=== PATIENT | female | born 1985 | race Caucasian/White ===

== ENCOUNTER 2021-02-19 15:28 | Emergency (ER) | payer OTHER, SELFPAY ==
--- NOTE | ~2021-02-19 | MR_ITS ---
EXAMINATION: MR BRAIN WITHOUT CONTRAST CLINICAL INFORMATION: Left-sided weakness. Stroke. COMPARISON: CT head from 02/19/2021. TECHNIQUE: MRI of the brain was obtained using routine sequences without contrast. FINDINGS: No focal restricted diffusion is demonstrated to suggest acute or subacute cerebral ischemia. No evidence of acute or chronic hemorrhagic products on heme-sensitive imaging. Normal parenchymal signal characteristics. The ventricles are normal in morphology and size. No abnormal mass effect. No midline shift. Normal appearance of the pituitary gland. The cerebellar tonsils are mildly low lying, positioned 0.4 cm below the foramen magnum. The CSF space of the foramen magnum is maintained. Normal arterial and venous vascular flow voids are present. Normal, homogeneous marrow signal. Near complete opacification of an atelectatic left maxillary sinus. Moderate mucosal thickening of the remaining paranasal sinuses. No signal abnormalities within the mastoids. MR/MR head/brain wo con IMPRESSION: 1. No acute intracranial abnormalities. 2. Mild cerebellar tonsillar ectopia. 3. Near complete opacification of an atelectatic left maxillary sinus. Moderate mucosal thickening of the remaining paranasal sinuses.
--- NOTE | ~2021-02-19 | XR_ITS ---
EXAMINATION: XR CHEST CLINICAL INFORMATION: Left-sided weakness. COMPARISON: Chest radiograph dated from 02/16/2018. TECHNIQUE: AP view of the chest was obtained. FINDINGS: No significant abnormality is noted involving the heart, lungs, mediastinum, bony thorax or soft tissues. XR/XR chest 1V IMPRESSION: Unremarkable examination.
--- NOTE | ~2021-02-19 | CT_ITS ---
EXAMINATION: CT HEAD WITHOUT CONTRAST CLINICAL INFORMATION: Left-sided weakness. COMPARISON: None. TECHNIQUE: Contiguous axial imaging was performed from the skull base to vertex without intravenous administration of contrast. Coronal and sagittal reformatted images are performed at the CT scanner. [This CT examination was performed using dose optimization techniques as appropriate, variously including the following: *Automated exposure control *Adjustment of mA and/or kV according to patient size (this includes techniques or standardized protocols for targeted exams where dose is matched to indication/reason for exam; i.e. extremities or head) *Use of iterative reconstruction technique] DLP: 700 mGy-cm. FINDINGS: There is no evidence of acute intracranial hemorrhage or territorial infarction. No abnormal mass-effect or midline shift is seen. [place] to white matter differentiation is well preserved. No extra-axial fluid collections are identified. The ventricles are normal in size. There is no abnormal attenuation within the brain parenchyma. There is no osseous abnormality. There is complete opacification of left maxillary sinus. Large retention cyst at the inferior right maxillary sinus. Mastoid air cells and middle ear cavities are normally aerated. CT/CT head/brain wo con IMPRESSION: No acute intracranial pathology.
[2021-02-19 15:49] VITALS: BP 141/95; PULSE 85; RESP 16; TEMP 37; O2SAT 99; BMI 25.5
[2021-02-19 15:49] LABS: Glucose, Whole Blood 74 mg/dL (60-115)
--- NOTE | 2021-02-19 16:01 | ECG_ITS ---
Test Reason : DIZZYNESS Blood Pressure : / mmHG Vent. Rate : 069 BPM Atrial Rate : 069 BPM P-R Int : 106 ms QRS Dur : 078 ms QT Int : 408 ms P-R-T Axes : 060 050 038 degrees QTc Int : 437 ms Sinus rhythm with sinus arrhythmia with short GA Otherwise normal ECG When compared with ECG of 16-FEB-2018 16:12, No significant change was found Referred By: Katherine Perez Electronically Signed By:ARIE BRADY
--- NOTE | 2021-02-19 16:05 | ED.GENADULT ---
HPI - General Adult General Chief complaint: Headache Stated complaint: dizzy trouble walking left side numb sudden onset Time Seen by Provider: 02/19/21 15:45 Source: patient and family (Spouse) Mode of arrival: ambulatory Limitations: no limitations History of Present Illness HPI narrative: 35-year-old female came in with feeling dizzy with a left-sided numbness and weakness started at 3 p.m.. Patient walked into the emergency department with her for evaluation. Patient was doing her daily activity at home today when she started to have dizziness, feeling nauseous, followed by feeling weak on the left side and decreased sensation to light touch on the left side. 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 Patient declined any headache, or nausea. Related Data Allergies Allergy/AdvReac Type Severity Reaction Status Date / Time No Known Allergies Allergy Verified 02/19/21 15:33 Review of Systems Review of Systems: All other systems are reviewed and are negative Constitutional: Reports as per HPI and Reports no additional constitutional complaints Eyes: Reports as per HPI and Reports no additional eye complaints Reports system reviewed and no additional complaints, except as documented Cardiovascular: Reports as per HPI and Reports no additional cardiovascular complaints Respiratory: Reports as per HPI and Reports no additional respiratory complaints Gastrointestinal: Reports as per HPI and Reports no additional gastrointestinal complaints Genitourinary: Reports no additional female genitourinary complaints Musculoskeletal: Reports no additional musculoskeletal complaints Skin/Breast: Reports system reviewed and no additional complaints, except as docu Psychiatric: Reports no additional psychiatric complaints Endocrine: Reports no additional endocrine complaints Hematologic/Lymphatic: Reports no additional hematologic/lymphatic complaints Allergic/Immunologic: Reports no additional allergic/immunologic complaints Reports system reviewed and no additional complaints, except as documented and Reports Abnormal speech present [facility] Past Medical History Source: old records reviewed Medical History (Updated 02/19/21 @ 19:54 by Katherine Perez MD) Bulging of cervical intervertebral disc Social History Social History Patient Tobacco Use Status: Never used Tobacco Use of substances other than those prescribed or required for medical reasons: No Advance Directives: No Advance Directives Information Provided: No Physical Exam Vital Signs: Vital Signs: Last Vital Signs Temp 98.5 F 02/19/21 19:25 Pulse 88 02/19/21 19:25 Resp 18 02/19/21 19:25 BP 127/95 H 02/19/21 19:25 Pulse Ox 99 02/19/21 19:25 Body Mass Index 25.5 Vital signs have been reviewed as appeared to be correct. Blood pressure normal. Heart rate normal. Respiration rate normal. Temperature normal. Oxygen saturation normal. Appearance: Alert. Oriented X3. No acute distress, anxious Head: Normal external exam. Normocephalic. Atraumatic. No Dee signs noted. No raccoon eyes noted Eyes: PERRLA. EOMI. Conjunctiva and sclera normal. Eyelids normal. ENT: TM's Normal. Pharynx normal. Uvula midline. Moist mucous membranes. No trismus noted. No drooling noted. No muffled voice noted. Neck: Normal inspection. Neck supple. FROM. No adenopathy. Thyroid Normal. No meningeal signs. No neck mass noted. CVS: Normal heart rate and rhythm. Heart sound normal. No murmurs noted. Pulses normal throughout. Respiratory: No respiratory distress. Painless inspiration. Breath sounds normal. No wheezes/rales/rhonchi noted. Chest nontender. No accessory muscle usage noted or decreased air movement noted. Abdomen: Soft and nontender. Bowel sounds normal in all 4 quadrants. No distention noted. No organomegaly noted. No visible injury noted. Back: No CVA tenderness. Full range of motion noted. Skin: Skin warm and dry. Normal skin color. Normal skin turgor. No rashes/lesions/lacerations noted. Extremities: No lower extremity edema. Extremities exhibit normal range of motion. Extremities nontender. Neuro: Oriented X 3. Cranial nerve exam: II-XII are grossly intact No motor deficit Reflexes normal, decreased sensation to light touch in the left upper extremities, left lower extremities, left face chin. NIH Stroke Scale Level of Consciousness: Alert Level of Consciousness Questions: Answers both questions correctly Level of Consciousness Commands: Performs both tasks correctly Best Gaze: Normal Visual: No visual loss Facial Palsy: Normal Motor Arm (Right): No drift Motor Arm (Left): No drift Motor Leg (Right): No drift Motor Leg (Left): No drift Limb Ataxia: Absent Sensory: Mild to moderate sensory loss Best Language: No aphasia Dysarthia: Normal Extinction and Inattention: No abnormality Score: 1 Course Course Course Narrative: Assessment and plan. 35-year-old female came in for evaluation of left side weakness and numbness started today at home, patient had a normal neuro exam, with an NIH score of 1, patient had CT of the head/MRI of the head which showed no acute stroke. No family history of stroke especially at young age. Patient now feels better after was given Ativan in the ED and able to ambulate in the emergency department Medical Decision Making Lab Data Lab results reviewed: Yes I reviewed the patient's lab results. Result diagrams: 02/19/21 16:24 02/19/21 16:24 Labs: Lab Results 02/19/21 02/19/21 02/19/21 Range/Units 15:45 16:24 16:24 WBC 7.8 (4.8-10.8) X10*3/uL RBC 4.70 (4.20-5.50) X10*6/uL Hgb 13.7 (12.0-16.0) g/dl Hct 41.8 (37-47) % MCV 88.9 (80-98) fL MCH 29.1 (27.0-33.0) pg MCHC 32.8 (31.0-35.0) g/dl RDW 12.8 (11.0-16.0) % Plt Count 266 (160-400) X10*3/uL MPV 11.8 (9.4-12.3) fL Immature Gran % (Auto) 0.3 (0.0-0.4) % Neut % (Auto) 53.0 (45-73) % Lymph % (Auto) 38.0 (20-40) % [place] % (Auto) 5.7 (2-11) % Eos % (Auto) 2.4 (0-4) % Baso % (Auto) 0.6 (0-2) % Lymph # (Auto) 3.0 (1.2-4.9) X10*3/uL [place] # (Auto) 0.5 (0.1-1.2) X10*3/uL Eos # (Auto) 0.2 (0.0-0.4) X10*3/uL Baso # (Auto) 0.1 (0.0-0.2) X10*3/uL Abs Immat Gran (auto) 0.02 (0.00-0.03) X10*3/uL Absolute Neuts (auto) 4.2 (2.0-8.3) X10*3/uL Absolute Nucleated RBC 0.000 (0.0-0.012) X10*3/uL Nucleated RBC % (auto) 0.0 (0.0-0.2) /100WBC Sodium 140 (135-145) mmol/L Potassium 4.0 (3.3-5.1) mmol/L Chloride 106 (96-108) mmol/L Carbon Dioxide 22 (22-29) mmol/L Anion Gap 16 (12-20) BUN 12 (9-16) mg/dL Creatinine 0.77 (0.5-1.4) mg/dL Estim Creat Clear Calc 98.9 Estimated GFR > 60 POC Glucose 74 (60-115) mg/dL Random Glucose 92 (60-115) mg/dL Calcium 9.6 (8.4-10.2) mg/dL Total Bilirubin 0.6 (0.0-1.0) mg/dL Direct Bilirubin 0.2 (0.0-0.5) mg/dL AST 18 (5-31) U/L ALT 18 (0-31) U/L Alkaline Phosphatase 65 (39-117) U/L Troponin I High Sens (<3.5-17.0) ng/L Total Protein 7.9 (6.5-8.0) g/dL Albumin 4.7 (3.5-5.0) g/dL Lipase 20 (8-78) U/L Urine Color Urine Appearance Urine pH (5.0-8.0) Ur Specific [place] (1.005-1.025) Urine Protein (NEG-TRACE) MG/DL Urine Glucose (UA) (NEG) MG/DL Urine Ketones (NEG) MG/DL Urine Blood (NEG) Urine Nitrite (NEG) Ur Leukocyte Esterase (NEG) COVID-19 (DENIS) (Negative) COVID-19 Clin Com 02/19/21 02/19/21 02/19/21 Range/Units 16:24 16:24 16:25 WBC (4.8-10.8) X10*3/uL RBC (4.20-5.50) X10*6/uL Hgb (12.0-16.0) g/dl Hct (37-47) % MCV (80-98) fL MCH (27.0-33.0) pg MCHC (31.0-35.0) g/dl RDW (11.0-16.0) % Plt Count (160-400) X10*3/uL MPV (9.4-12.3) fL Immature Gran % (Auto) (0.0-0.4) % Neut % (Auto) (45-73) % Lymph % (Auto) (20-40) % [place] % (Auto) (2-11) % Eos % (Auto) (0-4) % Baso % (Auto) (0-2) % Lymph # (Auto) (1.2-4.9) X10*3/uL [place] # (Auto) (0.1-1.2) X10*3/uL Eos # (Auto) (0.0-0.4) X10*3/uL Baso # (Auto) (0.0-0.2) X10*3/uL Abs Immat Gran (auto) (0.00-0.03) X10*3/uL Absolute Neuts (auto) (2.0-8.3) X10*3/uL Absolute Nucleated RBC (0.0-0.012) X10*3/uL Nucleated RBC % (auto) (0.0-0.2) /100WBC Sodium (135-145) mmol/L Potassium (3.3-5.1) mmol/L Chloride (96-108) mmol/L Carbon Dioxide (22-29) mmol/L Anion Gap (12-20) BUN (9-16) mg/dL Creatinine (0.5-1.4) mg/dL Estim Creat Clear Calc Estimated GFR POC Glucose (60-115) mg/dL Random Glucose (60-115) mg/dL Calcium (8.4-10.2) mg/dL Total Bilirubin (0.0-1.0) mg/dL Direct Bilirubin (0.0-0.5) mg/dL AST (5-31) U/L ALT (0-31) U/L Alkaline Phosphatase (39-117) U/L Troponin I High Sens < 3.5 (<3.5-17.0) ng/L Total Protein (6.5-8.0) g/dL Albumin (3.5-5.0) g/dL Lipase (8-78) U/L Urine Color YELLOW Urine Appearance CLEAR Urine pH 6.0 (5.0-8.0) Ur Specific [place] 1.020 (1.005-1.025) Urine Protein NEG (NEG-TRACE) MG/DL Urine Glucose (UA) NEG (NEG) MG/DL Urine Ketones 5 (NEG) MG/DL Urine Blood NEG (NEG) Urine Nitrite NEG (NEG) Ur Leukocyte Esterase NEG (NEG) COVID-19 (DENIS) Negative (Negative) COVID-19 Clin Com See Note Imaging Data Chest x-ray: Radiologist's impression: Unremarkable examination. CT scan - head: Radiologist's impression: No acute intracranial pathology. MRI of the brain: Radiologist's impression: 1. No acute intracranial abnormalities. 2. Mild cerebellar tonsillar ectopia. 3. Near complete opacification of an atelectatic left maxillary sinus. Moderate mucosal thickening of the remaining paranasal sinuses. ECG Data Interpretation: Normal sinus rhythm at 69 beats per minute, short UT intervals otherwise unremarkable intervals, ST-T changes. Discharge Plan Discharge Clinical Impression: Paresthesia Patient Disposition: Home, Self-Care Instructions: Paresthesia (ED) Referrals: Physician,Jenifer J [Primary Care Provider] - 2 days
[2021-02-19 16:31] LABS: MANUAL DIFF FLAG NO
[2021-02-19 16:34] LABS: Appearance Urine CLEAR; Color Urine YELLOW; Glucose Urine UA NEG (NEG); Leukocyte Esterase Urine NEG (NEG); Nitrite Urine NEG (NEG); Urine Blood NEG (NEG); Urine Ketones 5 MG/DL (NEG); Urine Protein NEG (NEG-TRACE)
[2021-02-19 16:35] LABS: Basophils Absolute Auto 0.1 X10*3/uL (0.0-0.2); Basophils Percent Auto 0.6 % (0-2); Eosinophils Absolute Auto 0.2 X10*3/uL (0.0-0.4); Eosinophils Percent Auto 2.4 % (0-4); Hematocrit 41.8 % (37-47); Hemoglobin 13.7 g/dl (12.0-16.0); Imm Gran Abs Auto 0.02 X10*3/uL (0.00-0.03); Imm Gran Pct Auto 0.3 % (0.0-0.4); Mean Corpuscular HGB Conc 32.8 g/dl (31.0-35.0); Mean Corpuscular Hemoglobin 29.1 pg (27.0-33.0); Mean Corpuscular Volume 88.9 fL (80-98); Mean Platelet Volume 11.8 fL (9.4-12.3); Monocytes Absolute Auto 0.5 X10*3/uL (0.1-1.2); Monocytes Percent Auto 5.7 % (2-11); Neutrophils Absolute Auto 4.2 X10*3/uL (2.0-8.3); Platelet Count 266 X10*3/uL (160-400); Red Cell Distribution Width 12.8 % (11.0-16.0); White Blood Count 7.8 X10*3/uL (4.8-10.8)
[2021-02-19] MEDS: 0.9 % Sodium Chloride 1,000 ML 999 ML IVCONT (16:39)
[2021-02-19] MEDS: LORazepam 1 MG TABLET PO (16:41)
[2021-02-19 16:42] VITALS: BP 138/81; PULSE 93; RESP 16; O2SAT 98
[2021-02-19 16:54] LABS: IDNOW Serial# 08D9AD1C
[2021-02-19 16:55] LABS: Troponin-I High Sensitivity < 3.5 ng/L (<3.5-17.0)
[2021-02-19 16:55] LABS: COVID-19 Test Negative (Negative)
--- NOTE | 2021-02-19 17:00 | PC.NURSE ---
Off unit to MRI
[2021-02-19 17:01] LABS: Alanine Aminotransferase 18 U/L (0-31); Albumin Level 4.7 g/dL (3.5-5.0); Alkaline Phosphatase 65 U/L (39-117); Anion Gap 16 (12-20); Aspartate Amino Transferase 18 U/L (5-31); Bilirubin Direct 0.2 mg/dL (0.0-0.5); Bilirubin Total 0.6 mg/dL (0.0-1.0); Blood Urea Nitrogen 12 mg/dL (9-16); Calcium 9.6 mg/dL (8.4-10.2); Carbon Dioxide 22 mmol/L (22-29); Chloride 106 mmol/L (96-108); Creatinine Clr Calc Pharmacy 98.9; Estimated Glomerular Filt Rate > 60; Glucose Random 92 mg/dL (60-115); Lipase 20 U/L (8-78); Sodium 140 mmol/L (135-145); Total Protein 7.9 g/dL (6.5-8.0)
[2021-02-19 19:25] VITALS: BP 127/95; PULSE 88; RESP 18; TEMP 36.9; O2SAT 99
--- NOTE | 2021-02-19 19:51 | PC.NURSE ---
Pt alert and oriented x4, clam and cooperative. Pt denies pain. Pt states she is ready for dc. Pt and spouse educated on dc. IV removed, vitas stable. Pt ambulated out to private car.
== END 2021-02-19 19:58 | disposition home or self-care (01) ==
PROVIDERS: Emergency Provider Emergency Medicine
DX: R20.2 Paresthesia of skin (principal); R51.9 Headache, unspecified; R42 Dizziness and giddiness; R29.701 NIHSS score 1; Z20.822 Contact with and (suspected) exposure to COVID-19; Z79.899 Other long term (current) drug therapy
CPT/HCPCS: 36415; 70450; 70551; 71045; 80048; 80076; 81003; 82947; 83690; 84484; 85025; 87635; 93005; 96360; 99285

== ENCOUNTER 2021-07-03 16:30 | Emergency (ER) | payer OTHER, SELFPAY ==
--- NOTE | ~2021-07-03 | US_ITS ---
EXAMINATION: US PELVIS CLINICAL INFORMATION: Pelvic pain with history of ovarian cyst COMPARISON: None TECHNIQUE: Ultrasound of the pelvis is performed using both transabdominal and transvaginal transducers along with Doppler. Transvaginal imaging is performed due to inadequate visualization transabdominally. FINDINGS: Uterus: The uterus is anteverted and anteflexed measuring 10.0 x 3.8 x 6.4 cm. A mid body fibroid is seen measuring 3.3 x 2.8 x 3.6 cm A nabothian cyst is present in the cervix. The double wall endometrial thickness is 1.9 mm. There is a small fluid collection in the endometrium measuring 7 x 3 x 10 mm. No yolk sac or pole is seen. The uterus is smooth in contour and has normal myometrial echogenicity. Adnexa: Both ovaries are visualized. There is normal color flow to the adnexa. There is no ovarian torsion. There is a small amount of free fluid in the cul-de-sac. Right ovary measures 2.6 x 1.3 x 2.3 cm for a volume of 4.1 mL and appears normal. Left ovary measures 3.6 x 2.1 x 1.9 cm for a volume of 7.5 mL and appears normal. A small adnexal cyst measuring about a centimeter in size is seen appearing to be separate from the ovary. US/US pelvic complete IMPRESSION: 1. There is a fluid collection in the endometrium. Please correlate with the possibility of . No yolk sac or pole is seen. 2. Ovaries appear unremarkable. A small cyst is present in the left adnexa. 3. 3.6 cm uterine fibroid is present.
[2021-07-03 16:54] VITALS: BP 150/78; PULSE 86; RESP 16; TEMP 36.6; O2SAT 100; BMI 25.2
[2021-07-03 17:13] LABS: MANUAL DIFF FLAG NO
[2021-07-03 17:21] LABS: Appearance Urine CLEAR; Color Urine STRAW; Glucose Urine UA NEG (NEG); Leukocyte Esterase Urine NEG (NEG); Nitrite Urine NEG (NEG); Specific Gravity - Urine <= 1.005 (1.005-1.025); Urine Blood NEG (NEG); Urine Ketones NEG (NEG); Urine Protein NEG (NEG-TRACE)
[2021-07-03 17:29] LABS: Basophils Absolute Auto 0.1 X10*3/uL (0.0-0.2); Basophils Percent Auto 0.6 % (0-2); Eosinophils Absolute Auto 0.1 X10*3/uL (0.0-0.4); Eosinophils Percent Auto 1.1 % (0-4); Hematocrit 42.5 % (37.0-47.0); Imm Gran Abs Auto 0.02 X10*3/uL (0.00-0.03); Imm Gran Pct Auto 0.2 % (0.0-0.4); Lymphocytes Absolute Auto 3.3 X10*3/uL (1.2-4.9); Lymphocytes Percent Auto 39.5 % (20-40); Mean Corpuscular HGB Conc 32.9 g/dl (31.0-35.0); Mean Corpuscular Hemoglobin 29.4 pg (27.0-33.0); Mean Corpuscular Volume 89.1 fL (80.0-98.0); Mean Platelet Volume 11.9 fL (9.4-12.3); Monocytes Absolute Auto 0.5 X10*3/uL (0.1-1.2); Monocytes Percent Auto 5.8 % (2-11); Neutrophils Absolute Auto 4.4 x10*3/uL (2.0-8.3); Neutrophils Percent Auto 52.8 % (45-73); Platelet Count 283 X10*3/uL (160-400); Red Blood Count 4.77 X10*6/uL (4.20-5.50); Red Cell Distribution Width 13.3 % (11.0-16.0); White Blood Count 8.3 X10*3/uL (4.8-10.8)
[2021-07-03 17:32] LABS: Alanine Aminotransferase 14 U/L (0-31); Albumin Level 4.8 g/dL (3.5-5.0); Alkaline Phosphatase 63 U/L (39-117); Anion Gap 15 (12-20); Aspartate Amino Transferase 16 U/L (5-31); Bilirubin Total 0.8 mg/dL (0.0-1.0); Blood Urea Nitrogen 8 mg/dL (9-16); Carbon Dioxide 23 mmol/L (22-29); Chloride 103 mmol/L (96-108); Creatinine Clr Calc Pharmacy 91.5; Estimated Glomerular Filt Rate > 60; Glucose Random 86 mg/dL (60-115); Potassium 3.4 mmol/L (3.3-5.1); Sodium 138 mmol/L (135-145); Total Protein 8.2 g/dL (6.5-8.0)
[2021-07-03 19:56] VITALS: BP 138/83; PULSE 82; RESP 15; TEMP 37.1; O2SAT 97
--- NOTE | 2021-07-03 19:56 | ED.ABDPAIN ---
HPI - Abdominal Pain General Chief Complaint: Abdominal Pain Stated Complaint: abd pain radiating to back Time Seen by Provider: 07/03/21 19:55 Source: patient Mode of arrival: ambulatory Limitations: no limitations History of Present Illness HPI narrative: Patient history of ovarian cyst been complaining of pain in right middle abdomen and pelvic area for last 4-6 hours as with nausea and had few loose bowels no flank pain no fever no chills no urinary symptoms Related Data Previous Rx's Medication Instructions Recorded dicyclomine 20 mg tablet 20 mg PO QID PRN #20 tab 07/03/21 Allergies Allergy/AdvReac Type Severity Reaction Status Date / Time No Known Allergies Allergy Verified 02/19/21 15:33 Review of Systems Review of Systems Yes all other systems are reviewed and are negative [facility]LY [facility] Past Medical History Medical History Bulging of cervical intervertebral disc Social History Social History Patient Tobacco Use Status: Never used Tobacco Advance Directives: No Patient : No Physical Exam ED Vital Signs: Vital Signs - 24 hr 07/03/21 16:54 07/03/21 19:56 Temperature 97.9 F 98.8 F Pulse Rate 86 82 Respiratory Rate 16 15 Blood Pressure 150/78 H 138/83 Pulse Oximetry 100 97 BMI result Body Mass Index 25.2 Appearance: Alert. Oriented X3. No acute distress. Eyes: No pallor or icterus ENT: Pharynx normal. Oral Mucosa moist Neck: Normal inspection. Neck supple. CVS: Normal heart rate and rhythm. Pulses normal. Respiratory: No respiratory distress. Equal air entry bilateral, no wheezing/rales/rhonchi Abdomen: Soft mild tenderness suprapubic area no rebound tenderness on the Bowel sounds are present, no mass palpable, no CVA tenderness Skin: Skin warm and dry. Normal skin color. Normal skin turgor. Extremities: No lower extremity edema. No calf tenderness Neuro: Oriented X 3. MDM - Abdominal Pain MDM Narrative Medical decision making narrative: Patient's symptoms likely from gastroenteritis felt better after parental serum negative patient is status post tubal ligation. Discharge patient home Lab Data Attestation: I reviewed the patient's lab results. Result diagrams: 07/03/21 17:10 07/03/21 17:10 Labs: Lab Results 07/03/21 07/03/21 07/03/21 Range/Units 17:10 17:10 17:10 WBC 8.3 (4.8-10.8) X10*3/uL RBC 4.77 (4.20-5.50) X10*6/uL Hgb 14.0 (12.0-16.0) g/dl Hct 42.5 (37.0-47.0) % MCV 89.1 (80.0-98.0) fL MCH 29.4 (27.0-33.0) pg MCHC 32.9 (31.0-35.0) g/dl RDW 13.3 (11.0-16.0) % Plt Count 283 (160-400) X10*3/uL MPV 11.9 (9.4-12.3) fL Immature Gran % (Auto) 0.2 (0.0-0.4) % Neut % (Auto) 52.8 (45-73) % Lymph % (Auto) 39.5 (20-40) % [place] % (Auto) 5.8 (2-11) % Eos % (Auto) 1.1 (0-4) % Baso % (Auto) 0.6 (0-2) % Lymph # (Auto) 3.3 (1.2-4.9) X10*3/uL [place] # (Auto) 0.5 (0.1-1.2) X10*3/uL Eos # (Auto) 0.1 (0.0-0.4) X10*3/uL Baso # (Auto) 0.1 (0.0-0.2) X10*3/uL Abs Immat Gran (auto) 0.02 (0.00-0.03) X10*3/uL Absolute Neuts (auto) 4.4 (2.0-8.3) x10*3/uL Absolute Nucleated RBC 0.000 (0.0-0.012) X10*3/uL Nucleated RBC % (auto) 0.0 (0.0-0.2) /100WBC Sodium 138 (135-145) mmol/L Potassium 3.4 (3.3-5.1) mmol/L Chloride 103 (96-108) mmol/L Carbon Dioxide 23 (22-29) mmol/L Anion Gap 15 (12-20) BUN 8 L (9-16) mg/dL Creatinine 0.82 (0.5-1.4) mg/dL Estim Creat Clear Calc 91.5 Estimated GFR > 60 Random Glucose 86 (60-115) mg/dL Calcium 10.0 (8.4-10.2) mg/dL Total Bilirubin 0.8 (0.0-1.0) mg/dL AST 16 (5-31) U/L ALT 14 (0-31) U/L Alkaline Phosphatase 63 (39-117) U/L Total Protein 8.2 H (6.5-8.0) g/dL Albumin 4.8 (3.5-5.0) g/dL Beta HCG, Quant < 2 mIU/mL Urine Color STRAW Urine Appearance CLEAR Urine pH 7.0 (5.0-8.0) Ur Specific [place] <= 1.005 (1.005-1.025) Urine Protein NEG (NEG-TRACE) MG/DL Urine Glucose (UA) NEG (NEG) MG/DL Urine Ketones NEG (NEG) MG/DL Urine Blood NEG (NEG) Urine Nitrite NEG (NEG) Ur Leukocyte Esterase NEG (NEG) Discharge Plan Discharge Clinical Impression: Gastroenteritis Patient Disposition: Home, Self-Care Instructions: Gastroenteritis (ED) Additional Instructions: Drink plenty of fluid Take Bentyl 1 tablet every 8 hours of bowel spasm Report to the ER/PCP if pain gets worse Prescriptions: New dicyclomine 20 mg tablet 20 mg PO QID PRN (Reason: abdominal pain) Qty: 20 0RF Interventions: ED Discharge Assessment Last Done: 07/03/21 22:51 Discharge Date/Time: 07/03/21 23:01
[2021-07-03] MEDS: Dicyclomine HCl 10 MG CAPSULE 20 MG PO (20:20)
--- NOTE | 2021-07-03 21:25 | PC.NURSE ---
20g IV in left AC. Patient took Bentyl PO. Alert and oriented and pleasant
[2021-07-03 23:00] LABS: HCG Quantitative < 2 mIU/mL
== END 2021-07-03 23:01 | disposition home or self-care (01) ==
PROVIDERS: Emergency Provider Internal Medicine
DX: K52.9 Noninfective gastroenteritis and colitis, unspecified (principal); R10.9 Unspecified abdominal pain
CPT/HCPCS: 36415; 76856; 80053; 81003; 84702; 85025; 99283; 99284

== ENCOUNTER 2024-04-11 11:44 | Outpatient (AMB) | payer OTHER, SELFPAY ==
--- NOTE | 2024-04-11 12:54 | AM.OFFWIN_ITS ---
Intake Vital Signs 04/11/24 12:55 Height 5 ft 5 in Weight 162 lb BMI 27.0 BP 124/88 Blood Pressure Location Rt brachial Position Sitting Pulse 68 Pulse Source Pulse Oximeter Pulse Oximetry (%) 98 Oxygen Delivery Method Room Air Intake Visit Reasons: [employer] LT leg bruise/lump/pain Intake Note: Patient here for bruises on left leg w/lumps, and feels soreness behind knee and pinching, she also mentioned she has been having SOB. Patient Tobacco Use Status: Never used Tobacco Allergies No Known Allergies Allergy (Verified 04/11/24 12:57) Do you need a note to return to daycare/school/sports/work: No HPI HPI Comments History of Present Illness Details This is a 38-year-old female with a past medical history of cervical degenerative disc disease presenting for evaluation of bruising that she has had on her left leg intermittently over the past 3 weeks. Patient denies any injury or trauma to her left lower extremity and states that sometimes under the bruising she will feel bumps associated with a pinching sensation. Patient also reports a minimal increase in her general fatigue. Patient works as a realtor. She denies having any fevers, chills, chest pain, cough, shortness for breath or difficulty ambulating. [facility] Medical History Bulging of cervical intervertebral disc Social History (System 03/25/23 @ 13:48 by Kadie Hernandez) Patient Tobacco Use Status: Never used Tobacco Review of Systems Const All systems reviewed & are unremarkable except as noted in HPI and below Eyes Reports no additional complaints ENT Reports no additional complaints Card Reports no additional complaints Resp Reports no additional complaints GI Reports no additional complaints Musc Reports no additional complaints, Denies abnormal gait, Denies back pain, Denies myalgias, Denies arthralgias and Denies muscle weakness Skin/Breast Details: ecchymosis left leg Reports lesions and Denies rash Neuro Reports no additional complaints and Denies abnormal gait Psych Reports no additional complaints [place]/Lymph Reports easy bruising (left leg only) Physical Exam Vital Signs: Last Vital Signs Pulse 68 04/11/24 12:55 BP 124/88 04/11/24 12:55 Pulse Ox 98 04/11/24 12:55 Oxygen Delivery Method Room Air 11/25/24 12:55 BMI result Body Mass Index 27.0 Const General: cooperative, healthy appearing, comfortable, no acute distress, well developed, alert, awake and Physically active Nutritional Appearance: average body habitus Orientation/consciousness: patient oriented x3 Limitations: no limitations Skin Other: single area of ecchymosis 1.5cm x 2cm posterior left proximal calf that is not tender to touch; no induration, no erythema, no edema Neuro General: patient oriented x3 Extrem Other: ambulating independently; no limitations of left knee ROM, no pain posterior fossa or left calf pain on examination. Left lower extremity: normal to inspection, full ROM and no joint enlargement; no edema Psych Appearance: grossly normal Mental Status: mental status grossly normal Insight: Good insight present (Psych) Judgement: Good judgement present (Psych) Assessment & Plan Assessment & Plan (1) Superficial bruising of lower leg: Comment: Patient is seen and evaluated. She has in no acute distress. Patient presents with atraumatic ecchymosis of the left distal lower extremity. Code(s): S80.10XA - Contusion of unspecified lower leg, initial encounter Qualifiers: Encounter type: initial encounter Laterality: left Qualified Code(s): S80.12XA - Contusion of left lower leg, initial encounter Plan: Laboratories were deferred at this time. Patient is encouraged to seek primary care services as an outpatient for ongoing management and care. No emergent imaging is warranted at this time. Coding Level of Care Code Est Pt Level 3 (56008) Diagnoses Contusion of left lower leg, initial encounter S80.12XA Encounter type: initial encounter Laterality: left Time Spent (min) 20
[2024-04-11 12:55] VITALS: BP 124/88; PULSE 68; O2SAT 98; BMI 27.0
== END 2024-04-11 13:51 | disposition home or self-care (01) ==
PROVIDERS: Visit Provider Physician Assistant
DX: S80.12XA Contusion of left lower leg, initial encounter (principal)

== ENCOUNTER → 2024-04-11 11:44 | Outpatient (BNVA) | payer OTHER, SELFPAY | PROVIDERS: Visit Provider Physician Assistant ==

== ENCOUNTER 2024-07-04 10:14 | Outpatient (AMB) | payer OTHER, SELFPAY ==
--- OUTSIDE RECORDS SUMMARY | 2024-07-04 10:18 | XMS_ITS | Clinical Summary ---
Author Organization [facility] ity Address [address] [place] [address] Care Team Providers Care Transfill Technician Name Role Phone Aurea Rizzo MD Primary Care Provider Allergies Active Allergy Reactions Criticality Noted Date Comments House Dust 12/27/2014 Nut - Unspecified 12/27/2014 Pecans Other 12/27/2014 Seasonal Allergies Whey 12/27/2014 Medications acyclovir (ZOVIRAX) 5 % cream apply to cold sore Q3H until resolved 05/29/2018 Active albuterol HFA (PROAIR HFA ; PROVENTIL HFA ; VENTOLIN HFA) 90 mcg/actuation inhaler Inhale 2 Puffs into the lungs every 4 hours as needed for Cough or Wheezing. 10/25/2021 Active fluticasone propionate (FLONASE) 50 mcg/actuation nasal spray spray/apply 1 spray in each nostril daily. Active fluticasone propionate (FLONASE) 50 mcg/actuation nasal spray 2 Sprays by Nasal route daily for 30 days. 10/25/2021 Active ibuprofen (ADVIL,MOTRIN) 800 mg tablet Take 1 Tab by mouth every 8 hours as needed for Pain. 08/21/2020 Active tiZANidine (ZANAFLEX) 2 mg tablet Take 1 Tab by mouth every 6 hours as needed (spasm) for up to 10 days. 08/21/2020 Active Active Problems Problem Noted Date Diagnosed Date GERD (gastroesophageal reflux disease) COVID 05/31/2021 Overweight (BMI 25.0-29.9) 05/29/2018 Asthma 12/27/2014 Edema 03/20/2014 Chronic cholecystitis 08/13/2012 Immunizations Name Administration Dates Next Due HPV, Quadrivalent 08/06/2009,01/01/2009,11/07/19 09 Tdap Tetanus diptheria acell ular pertussis (Boostrix; Adacel) 7yo and older 09/28/2008 Surgical History Surgery Date Site/Laterality Comments TUBAL LIGATION 2011 PROCEDURE: HISTORICAL TUBAL LIGATION CHOLECYSTECTOMY july 2012 PROCEDURE: [place] CHOLECYSTECTOMY VAGINOSCOPY 2010 PROCEDURE: [place] COLPOSCOPY CERVIX VAG LOOP ELTRD BX CERVIX Medical History Medical History Date Comments GERD (gastroesophageal reflu x disease) DX:GERD (gastroesophageal re flux disease) Asthma 12/27/2014 DX:Asthma Edema 03/20/2014 DX:Edema Family History Medical History Relation Name Comments Other: Heart Disease Father Heart attack Father's side uncle Diabetes Maternal Grandfather hyperte nsion Other: heart prob Maternal Grandmother Depression Mother asthma Breast cancer Neg Hx Colon cancer Neg Hx Ovarian cancer Neg Hx Prostate cancer Neg Hx Uterine cancer Neg Hx Relation Name Status Comments Brother Alive Father Alive Father's side Maternal Grandfather Alive Maternal Grandmother Alive Mother Alive Paternal Grandfather Paternal Grandmother Alive Sister Alive Social History Tobacco Use Types Packs/Day Years Used Date Smoking Tobacco: Never Smokeless Tobacco: Never Alcohol Use Standard Drinks/Week Comments No 0 (1 standard drink = 0.6 oz pur e alcohol) Comments Unknown Sex and Gender Information Value Date Recorded Sex Assigned at Not on file Legal Sex Female 6:17 PM EST Gender Identity Not on file Sexual Orientation Not on file Obstetrics History Last Filed Vital Signs Vital Sign Reading Time Taken Comments Blood Pressure 128/88 12/11/2022 4:43 PM EDT Sitting L Arm Pulse 88 12/11/2022 4:43 PM EDT Temperature - - Respiratory Rate - - Oxygen Saturation - - Inhaled Oxygen Concentration - - Weight 73.3 kg (161 lb 9.6 oz) 06/25/2022 11:28 AM EST Height 165.1 cm (5' 5 ) 06/25/2022 11:2 8 AM EST Body Mass Index 26.89 06/25/2022 11:28 AM EST Plan of Treatment Health Maintenance Due Date Last Done Comments Breast Cancer Screening 1984 Hepatitis B Vaccines (1 of 3 - 19+ 3-dose series) 2003 Pneumococcal Vaccine: Pediatrics (0 to 5 Years) and At-Risk Patients (6 to 64 Years) (1 of 2 - PCV) 2003 DTaP,Tdap,and Td Vaccines (2 - Td or Tdap) 09/28/2018 09/28/2008 Depression Screening 04/19/2022 Social Influencers of Health Screening 04/19/2022 COVID-19 Vaccine (1 - 2023-2 5 season) 2024 Influenza Vaccine (#1) 2024 Cervical Cancer Screening: HPV 12/11/2026 12/11/2021 Cholesterol Screening (Lipid Panel) 12/11/2026 12/11/2021 HPV Vaccines Completed 08/06/2009, 01/01/2009, 11/06/2008 HIV Screening Completed 08/10/2017 Hepatitis C Screening Completed 08/10/2017 HIB Vaccines Aged Out No longer eligi ble based on patient's age to complete this topic Hepatitis A Vaccines Aged Out No long er eligible based on patient's age to complete this topic IPV Vaccines Aged Out No longer eligi ble based on patient's age to complete this topic MMR Vaccines Aged Out No longer eligi ble based on patient's age to complete this topic Meningococcal ACWY Vaccine Aged Out N o longer eligible based on patient's age to complete this topic Meningococcal B Vacine Aged Out No lo nger eligible based on patient's age to complete this topic RSV Immunization Patients Under 20 months Aged Out No longer eligible b ased on patient's age to complete this topic Varicella Vaccines Aged Out No longer eligible based on patient's age to complete this topic Procedures Procedure Name Priority Date/Time Associated Diagnosis Comments HPV Routine 12/11/2021 LIPID PANEL Routine 12/11/2021 HEPATITIS C SCREENING Routine 08/10/2017 HIV SCREENING Routine 08/10/2017 from Last 3 Months or Most Recently Relevant to Health Maintenance Results * Cervical Cancer Screening: HPV (12/11/2021) Cervical Cancer Screening: HPV negative, abstracted us Historical Provider HEALTH MAINTENANCE Final Result * (ABNORMAL) Lipid panel (12/11/2021) [facility] LDL/HDL Ratio 3 0 - 4 Triglycerides 113 0 - 150 mg/dL Cholesterol 176 0 - 200 mg/dL HDL 53 >=40 mg/dL LDL Cholesterol 101(A) 0 - 100 mg/dL Blood Venous blood specimen / Unknown Historical Provider LAB BLOOD ORDERABLES Nichole l Result * HIV Screening (08/10/2017) [facility] HIV Screening abstracted Historical Provider HEALTH MAINTENANCE Final Result * Hepatitis C Screening (08/10/2017) [facility] Hepatitis C Screening abstracted [facility] Provider HEALTH MAINTENANCE Final Result from Last 3 Months or Most Recently Relevant to Health Maintenance Care Teams Transfill Technician Relationship Specialty Start Date End Date Aurea Rizzo MD [address] [place] [phone] PCP - General Internal Medicine 05/29/21
[2024-07-04 10:37] VITALS: BP 120/82; PULSE 83; RESP 18; TEMP 36.8; O2SAT 97; BMI 27.3
--- NOTE | 2024-07-04 10:37 | MHC.PC.OV ---
Vital Signs 07/04/24 10:37 Height 5 ft 5 in Weight 164 lb BMI 27.3 BP 120/82 Blood Pressure Location Lt brachial Position Sitting Respiration 18 Pulse 83 Pulse Source Pulse Oximeter Temp 98.2 F Temp Source Oral Pulse Oximetry (%) 97 Oxygen Delivery Method Room Air Intake Visit Reasons: Est Care Bruising/lump/leg pain Intake Note: Pt is here today for a New patient visit PE. Allergies No Known Allergies Allergy (Verified 07/04/24 10:47) Medication List - Last Reconciled 07/04/24 by Angella Chin MD No Known Home Meds Tobacco use date assessed: 07/04/24 Dental Screening Dental Screen Date: 07/04/24 Did you have a dental visit in the last 12 months?: Yes Did you have a dental problem in the last 6 months where you did not have access to dental care?: No Was dental information given to patient?: Patient has dentist HPI Est Care Bruising/lump/leg pain HPI Details Pt presents for [employer]OWER PL[employer] SUPER[employer] PE. Patient presents complaining of recurrent pain swelling and bruising in the left posterior calf without trauma, worse during her menses. Patient denies any history of blood clots PFSH Medical History Bulging of cervical intervertebral disc Surgical History Hx of tubal ligation Hx of cholecystectomy Family History Father Borderline diabetes Hypertension Mother Hypertension Social History (Updated 07/04/24 @ 11:17 by Angella Chin MD) Household Members Other:: works as realtor, 2 adult daughters Housing: House Patient Tobacco Use Status: Never used Tobacco e-Cigarette/Vaping Use: Never Used service: No Current occupational status: employed Cognitive needs: No Hearing needs: No Vision needs: No Questionnaire PHQ-9 Over the last 2 weeks, how often have you been bothered by any of the following problems? 1. Little interest or pleasure in doing things: not at all 2. Feeling down, depressed, or hopeless: not at all 3. Trouble falling or staying asleep, or sleeping too much: not at all 4. Feeling tired or having little energy: not at all 5. Poor appetite or overeating: not at all 6. Feeling bad about yourself - or that you are a failure or have let yourself or your family down: not at all 7. Trouble concentrating on things, such as reading the newspaper or watching television: not at all 8. Moving or speaking so slowly that other people could have noticed. Or the opposite - being so fidgety or restless that you have been moving around a lot more than usual: not at all 9. Thoughts that you would be better off or of hurting yourself in some way: not at all Total score: 0 Depression Screening Interpretation: Negative Depression Screening Done: Yes 64526 - PHQ-9 Billing: Yes Source: Developed by Drs. Juma Rivera, Lana Guaman, aBy Sheehan and colleagues, with an educational sathya from [employer]. Thrive Questionnaire Date Thrive assessed: 07/04/24 I am a: Patient What is your living situation today?: I have a steady place to live Within the past 12 months, did the food you bought not last and you didn't have the money to get more?: Never true Within the past 12 months, did you worry whether your food would run out before you got money to buy more?: Never true Do you have trouble paying for medicines?: No Do you have trouble getting transportation to medical appointments?: No Do you have trouble paying your heating and electricity bill?: No Do you have trouble taking care of your child, family member or friend?: No Do you have trouble with day-to-day activities such as bathing, preparing meals, shopping, managing finances, etc.?: No Are you currently unemployed and looking for a job?: No Are you interested in more education?: No Please select the resources that you would like help with: None Currently or been in a relationship where the following occur: No concerns reported THRIVE Score: 0 AUDIT C Alcohol Use Questionnaire (AUDIT-C) 1. How often do you have a drink containing alcohol?: Monthly or less 2. How many drinks containing alcohol do you have on a typical day when you are drinking?: 1 or 2 3. How often do you have six or more drinks on one occasion?: Never Total Score: 1 TERELL-7 AMB Questionnaire TERELL-7 Date TERELL - 7 assessed: 07/04/24 Feeling nervous, anxious, or on edge: 0 = Not at all Not being able to stop or control worryin = Not at all Worrying too much about different things: 0 = Not at all Trouble relaxin = Not at all Being so restless that it is hard to sit still: 0 = Not at all Becoming easily annoyed or irritable: 0 = Not at all Feeling afraid as if something awful might happen: 0 = Not at all Total TERELL-7 score (0-4 normal; 5-9 mild; 10-14 moderate; 15-21 severe): 0 Source: Developed by Drs. Juma Rivera, Lana Guaman, Bay Sehehan and colleagues, with an educational sathya from [employer]. TERELL-7 Assessment Billing TERELL-7 Assessment Tool: TERELL-7 Assessment 87542 Review of Systems Const All systems reviewed & are unremarkable except as noted in HPI and below Eyes Reports no additional complaints ENT Reports no additional complaints Card Reports no additional complaints Resp Reports no additional complaints GI Reports no additional complaints Reports no additional complaints Physical exam (Primary Care) Vital Signs: Last Vital Signs Temp 98.2 F 07/04/24 10:37 Pulse 83 07/04/24 10:37 Resp 18 07/04/24 10:37 BP 120/82 07/04/24 10:37 Pulse Ox 97 07/04/24 10:37 Oxygen Delivery Method Room Air 07/04/24 10:37 BMI result Body Mass Index 27.3 Tobacco/Smoking Status: Tobacco use Status Tobacco use date assessed 07/04/24 07/04/24 10:38 Patient Tobacco Use Status Never used Tobacco 07/04/24 10:38 e-Cigarette/Vaping Use Never Used 07/04/24 10:51 PHQ-9: PHQ-9 Score PHQ-9: Total score 0 07/04/24 10:51 Depression Screening Interpretation: Negative Thrive Assessment: Date of Thrive Assessment Date Thrive assessed 07/04/24 07/04/24 10:51 Currently or been in a relationship where the following occur: No concerns reported Const General: no acute distress HENMT Head: Yes normal to inspection Ears: hearing grossly normal bilaterally Face and sinus: Yes normal facial exam Throat: Yes posterior oropharynx normal Eyes General: appearance normal, both eyes and all related structures Neck Neck: Yes no lymphadenopathy and Yes supple Resp Effort & Inspection: normal respiratory effort Auscultation: clear to auscultation bilaterally Cardio Rhythm: regular rhythm Heart sounds: S1 normal heart sound present and S2 normal heart sound present GI Inspection: Yes normal to inspection Palpation (GI): Soft to palpation Percussion: Yes normal to percussion Auscultation: normal bowel sounds Extrem Other: Left posterior calf area visible, superficial veins and telangiectasias, soft tissue swelling and tenderness General: Yes no clubbing, cyanosis or edema Coding Level of Care Code New Pt Prev Care 40-64y(14146) Diagnoses Annual physical exam Z00.00 Left leg swelling M79.89 Normal pelvic exam Z01. Additional Codes TERELL-7 Assessment Billing - TERELL-7 Assessment Tool: TERELL-7 Assessment [id number] ([id number]) PHQ-9 - 23136 - PHQ-9 Billing: Yes ([id number]) Assessment & Plan Assessment & Plan (1) Annual physical exam: Code(s): Z. - Encounter for general adult medical examination without abnormal findings Category: Medical Plan: Well-balanced diet regular physical activity discussed with the patient she will return for fasting blood work. Patient is established with motor assembler for pelvic exam and declined mammogram (2) Left leg swelling: Code(s): M79.89 - Other specified soft tissue disorders Category: Medical Plan: Obtain ultrasound to rule out DVT. Patient was advised to wear compression stockings and elevate lower extremities (3) Normal pelvic exam: Comment: motor assembler Joanne Code(s): Z01.419 - Encounter for gynecological examination (general) (routine) without abnormal findings Category: Medical Plan: Established with motor assembler Orders: Orders UA w Microscopic Today Z00.00 - Encounter for general adult medical examination without abnormal findings, Z01.419 - Encounter for gynecological examination (general) (routine) without abnormal findings US venous duplex LE LT Today M79.89 - Other specified soft tissue disorders Comprehensive [place]. Panel Fast Today Z00.00 - Encounter for general adult medical examination without abnormal findings, Z01.419 - Encounter for gynecological examination (general) (routine) without abnormal findings Complete Blood Count Auto Diff Today Z00.00 - Encounter for general adult medical examination without abnormal findings, Z01.419 - Encounter for gynecological examination (general) (routine) without abnormal findings Lipid Panel Today Z00.00 - Encounter for general adult medical examination without abnormal findings, Z01.419 - Encounter for gynecological examination (general) (routine) without abnormal findings
== END 2024-07-04 11:22 | disposition home or self-care (01) ==
PROVIDERS: Visit Provider Internal Medicine
DX: Z00.00 Encounter for general adult medical examination without abnormal findings (principal); M79.89 Other specified soft tissue disorders; Z01.419 Encounter for gynecological examination (general) (routine) without abnormal findings

== ENCOUNTER → 2024-07-04 10:14 | Outpatient (BNVA) | payer OTHER, SELFPAY | PROVIDERS: Visit Provider Internal Medicine | DX: Z00.00 Encounter for general adult medical examination without abnormal findings (principal); M79.89 Other specified soft tissue disorders | CPT/HCPCS: 96127 ==

== ENCOUNTER 2024-07-04 12:17 | Outpatient (REF) | payer OTHER, SELFPAY ==
--- NOTE | ~2024-07-04 | US_ITS ---
CLINICAL HISTORY: M79.89 - Other specified soft tissue disorders, swelling Left lower extremity venous duplex ultrasound Comparison: None Findings: The visualized deep veins are fully compressible with normal flow. No popliteal cyst. No cystic or solid lesion in the area of pain at the anterior/lateral aspect of the knee. Impression: No deep vein thrombosis. This document has been electronically signed by: Hailee Villela MD on 07/04/2024 13:21:12
== END 2024-07-04 12:18 | disposition home or self-care (01) ==
LOC: HO.US 12:17
PROVIDERS: PCP Internal Medicine; Visit Provider Internal Medicine
DX: M79.605 Pain in left leg (principal); M79.89 Other specified soft tissue disorders
CPT/HCPCS: 93971

== ENCOUNTER → 2024-07-04 12:21 | Outpatient (BNV) | payer OTHER, SELFPAY | PROVIDERS: PCP Internal Medicine; Visit Provider Radiology Diagnostic Radiology | DX: M79.89 Other specified soft tissue disorders (principal) | CPT/HCPCS: 93971 ==

== ENCOUNTER 2024-07-05 09:55 | Outpatient (REF) | payer OTHER, SELFPAY ==
[2024-07-05 10:24] LABS: MANUAL DIFF FLAG NO
--- OUTSIDE RECORDS SUMMARY | 2024-07-05 10:40 | XMS_ITS | Clinical Summary ---
Author Organization [facility] ity Address [address] [place] [address] Care Team Providers Care Vamper Name Role Phone Aurea Rizzo MD Primary [...] HISTORICAL TUBAL LIGATION CHOLECYSTECTOMY july 2012 PROCEDURE: [place] CHOLECYSTECTOMY VAGINOSCOPY 2010 PROCEDURE: [place] COLPOSCOPY CERVIX VAG LOOP ELTRD BX CERVIX [...] Final Result * (ABNORMAL) Lipid panel (12/11/2021) [facility] LDL/HDL Ratio 3 0 - 4 Triglycerides 113 0 - 150 mg/dL Cholesterol 176 0 - 200 mg/dL HDL 53 >=40 mg/dL LDL Cholesterol 101(A) 0 - 100 mg/dL Blood Venous blood specimen / Unknown Historical Provider LAB BLOOD ORDERABLES Nichole l Result * HIV Screening (08/10/2017) [facility] HIV Screening abstracted Historical Provider HEALTH MAINTENANCE Final Result * Hepatitis C Screening (08/10/2017) [facility] Hepatitis C Screening abstracted [facility] Provider HEALTH MAINTENANCE Final Result from Last 3 Months or Most Recently Relevant to Health Maintenance Care Teams Vamper Relationship Specialty Start Date End Date Aurea Rizzo MD [address] [place] [phone] PCP - General Internal Medicine 05/29/21
[2024-07-05 11:21] LABS: Basophils Absolute Auto 0.1 X10*3/uL (0.0-0.2); Basophils Percent Auto 0.8 % (0-2); Eosinophils Absolute Auto 0.1 X10*3/uL (0.0-0.4); Eosinophils Percent Auto 2.3 % (0-4); Hematocrit 44.6 % (37.0-47.0); Hemoglobin 14.5 g/dl (12.0-16.0); Imm Gran Abs Auto 0.01 X10*3/uL (0.00-0.03); Imm Gran Pct Auto 0.2 % (0.0-0.4); Lymphocytes Absolute Auto 1.9 X10*3/uL (1.2-4.9); Lymphocytes Percent Auto 31.2 % (20-40); Mean Corpuscular HGB Conc 32.5 g/dl (31.0-35.0); Mean Corpuscular Hemoglobin 28.6 pg (27.0-33.0); Mean Platelet Volume 12.7 fL (9.4-12.3); Monocytes Absolute Auto 0.4 X10*3/uL (0.1-1.2); Monocytes Percent Auto 6.1 % (2-11); Neutrophils Absolute Auto 3.6 x10*3/uL (2.0-8.3); Neutrophils Percent Auto 59.4 % (45-73); Platelet Count 208 X10*3/uL (160-400); Red Blood Count 5.07 X10*6/uL (4.20-5.50); Red Cell Distribution Width 13.4 % (11.0-16.0); White Blood Count 6.1 X10*3/uL (4.8-10.8)
[2024-07-05 11:27] LABS: Appearance Urine Clear; Color Urine Yellow; Glucose Urine UA Negative (Negative); Leukocyte Esterase Urine Negative (Negative); Nitrite Urine Negative (Negative); UMIC TRIGGER UA YES; Urine Blood Trace (Negative); Urine Ketones Negative (Negative); Urine Protein Trace mg/dL (Neg-Trace)
[2024-07-05 11:33] LABS: Bacteria Urine 1+ (None Seen); Hyaline Casts Urine 0-2 /LPF (0-2); WBC Urine 0-5 /HPF (0-5)
[2024-07-05 12:27] LABS: Alanine Aminotransferase 16 U/L (0-31); Albumin Level 4.4 g/dL (3.5-5.0); Alkaline Phosphatase 68 U/L (39-117); Anion Gap 12 (12-20); Aspartate Amino Transferase 17 U/L (5-31); Bilirubin Total 0.7 mg/dL (0.0-1.0); Blood Urea Nitrogen 11 mg/dL (9-16); Calcium 9.4 mg/dL (8.4-10.2); Carbon Dioxide 24 mmol/L (22-29); Chloride 108 mmol/L (96-108); Cholesterol 171 mg/dL (<200); Estimated Glomerular Filt Rate > 60; Glucose Fasting 85 mg/dL (60-99); HDL Cholesterol 48 mg/dL (>40); LDL Cholesterol Calculated 105 mg/dL (<100); Potassium 4.2 mmol/L (3.3-5.1); Sodium 140 mmol/L (135-145); Total Protein 8.1 g/dL (6.5-8.0); Triglycerides 94 mg/dL (<150)
== END 2024-07-05 09:56 | disposition home or self-care (01) ==
LOC: HO.LAB 09:55
PROVIDERS: PCP Internal Medicine; Visit Provider Internal Medicine
DX: Z00.00 Encounter for general adult medical examination without abnormal findings (principal); Z13.220 Encounter for screening for lipoid disorders; Z13.0 Encounter for screening for diseases of the blood and blood-forming organs and certain disorders involving the immune mechanism
CPT/HCPCS: 36415; 80053; 80061; 81001; 85025

== ENCOUNTER 2024-07-06 15:32 | Outpatient (REF) | payer OTHER, SELFPAY ==
--- OUTSIDE RECORDS SUMMARY | 2024-07-06 15:35 | XMS_ITS | Clinical Summary ---
Author Organization [facility] ity Address [address] [place] [address] Care Team Providers Care Lead Python Developer Name Role Phone Aurea Rizzo MD Primary [...] HISTORICAL TUBAL LIGATION CHOLECYSTECTOMY july 2012 PROCEDURE: [place] CHOLECYSTECTOMY VAGINOSCOPY 2010 PROCEDURE: [place] COLPOSCOPY CERVIX VAG LOOP ELTRD BX CERVIX [...] Final Result * (ABNORMAL) Lipid panel (12/11/2021) [facility] LDL/HDL Ratio 3 0 - 4 Triglycerides 113 0 - 150 mg/dL Cholesterol 176 0 - 200 mg/dL HDL 53 >=40 mg/dL LDL Cholesterol 101(A) 0 - 100 mg/dL Blood Venous blood specimen / Unknown Historical Provider LAB BLOOD ORDERABLES Nichole l Result * HIV Screening (08/10/2017) [facility] HIV Screening abstracted Historical Provider HEALTH MAINTENANCE Final Result * Hepatitis C Screening (08/10/2017) [facility] Hepatitis C Screening abstracted [facility] Provider HEALTH MAINTENANCE Final Result from Last 3 Months or Most Recently Relevant to Health Maintenance Care Teams Lead Python Developer Relationship Specialty Start Date End Date Aurea Rizzo MD [address] [place] [id number] PCP - General Internal Medicine 05/29/21
[2024-07-06 16:05] LABS: Appearance Urine Clear; Color Urine Yellow; Glucose Urine UA Negative (Negative); Leukocyte Esterase Urine Negative (Negative); Nitrite Urine Negative (Negative); PH 5.5 (5.0-9.0); Specific Gravity - Urine >= 1.030 (1.005-1.025); UMIC TRIGGER UA YES; Urine Blood Trace (Negative); Urine Ketones Trace mg/dL (Negative); Urine Protein Trace mg/dL (Neg-Trace)
[2024-07-06 16:11] LABS: Bacteria Urine 1+ (None Seen); Hyaline Casts Urine 0-2 /LPF (0-2); WBC Urine 0-5 /HPF (0-5)
== END 2024-07-06 15:33 | disposition home or self-care (01) ==
LOC: HO.LAB 15:32
PROVIDERS: PCP Internal Medicine; Visit Provider Internal Medicine
DX: Z00.00 Encounter for general adult medical examination without abnormal findings (principal); Z13.9 Encounter for screening, unspecified
CPT/HCPCS: 81001

== ENCOUNTER 2024-07-14 13:01 | Outpatient (REF) | payer OTHER, SELFPAY ==
--- NOTE | ~2024-07-14 | US_ITS ---
EXAMINATION: US RETROPERITONEUM HISTORY: R31.29 - Other microscopic hematuria TECHNIQUE: Real-time grayscale ultrasound imaging of the kidneys was performed and images were reviewed. COMPARISON: Correlation is made with a pelvic ultrasound dated 07/03/2021. FINDINGS: Right kidney: The right kidney measures 10.1 x 4.7 x 6.4 cm. Renal parenchymal echotexture and thickness are normal. There are no masses. There is no hydronephrosis or renal calculi. Left Kidney: The left kidney measures 10.4 x 5.6 x 5.8 cm. Renal parenchymal echotexture and thickness are normal. There are no masses. There is no hydronephrosis or renal calculi. The urinary bladder is unremarkable. Bilateral ureteral jets are identified. Before voiding, the urinary bladder measured 12.9 x 7.2 x 10.0 cm for an estimated volume of 488 mL. After voiding, the urinary bladder measured 4.4 x 2.2 x 4.4 cm, for an estimated volume of 22 mL. Incidental note is made of a 4.2 x 3.2 x 3.4 cm heterogeneous mass in the uterus which likely represents a fibroid. This is larger than on the prior study (previously 3.4 x 2.8 x 3.6 cm). US/US retroperitoneal comp IMPRESSION: Unremarkable renal ultrasound. Interval enlargement of a probable uterine fibroid as described. Electronically signed by: Juma García MD 07/14/2024 02:22 PM [facility]
[2024-07-14 14:39] LABS: Urine Cytology See Pathology rpt
--- OUTSIDE RECORDS SUMMARY | 2024-07-14 15:31 | XMS_ITS | Clinical Summary ---
Author Organization [facility] ity Address [address] [place] [address] Care Team Providers Care Supervisor [employer] Name Role Phone Aurea Rizzo MD Primary [...] HISTORICAL TUBAL LIGATION CHOLECYSTECTOMY july 2012 PROCEDURE: [place] CHOLECYSTECTOM[place] VAGINOSCOPY 2010 PROCEDURE: [place] COLPOSCOPY CERVIX VAG LOOP ELTRD BX CERVIX [...] Final Result * (ABNORMAL) Lipid panel (12/11/2021) [facility] LDL/HDL Ratio 3 0 - 4 Triglycerides 113 0 - 150 mg/dL Cholesterol 176 0 - 200 mg/dL HDL 53 >=40 mg/dL LDL Cholesterol 101(A) 0 - 100 mg/dL Blood Venous blood specimen / Unknown Historical Provider LAB BLOOD ORDERABLES Nichole l Result * HIV Screening (08/10/2017) [facility] HIV Screening abstracted Historical Provider HEALTH MAINTENANCE Final Result * Hepatitis C Screening (08/10/2017) [facility] Hepatitis C Screening abstracted [facility] Provider HEALTH MAINTENANCE Final Result from Last 3 Months or Most Recently Relevant to Health Maintenance Care Teams Supervisor Malt House Relationship Specialty Start Date End Date Aurea Rizzo MD [address] [place] [phone] PCP - General Internal Medicine 05/29/21
== END 2024-07-14 13:02 | disposition home or self-care (01) ==
LOC: HO.US 13:01
PROVIDERS: PCP Internal Medicine; Visit Provider Internal Medicine
DX: R31.29 Other microscopic hematuria (principal); R19.00 Intra-abdominal and pelvic swelling, mass and lump, unspecified site
CPT/HCPCS: 76770; 87086; 88112

== ENCOUNTER → 2024-07-14 13:08 | Outpatient (BNV) | payer OTHER, SELFPAY | PROVIDERS: PCP Internal Medicine; Visit Provider Radiology Diagnostic Radiology | DX: R31.29 Other microscopic hematuria (principal) | CPT/HCPCS: 76770 ==